=== PATIENT | female | born 1950 | race Caucasian/White ===

== ENCOUNTER 2020-12-25 06:36 | Emergency (ER) | payer OTHER, BC ==
[~2020-12-25] VITALS: Ht 160 cm; Wt 83.8 kg
--- NOTE | 2020-12-25 06:52 | NUR ---
DISCUSSED TRIAGE WITH MD BARRIOS, NO NEED TO PLACE PT ON STROKE ALERT PER MD.
--- NOTE | 2020-12-25 07:45 | NUR ---
PT REPORTS 10/10 RIGHT TEMPORAL PAIN, DIZZINESS, GENERALIZED WEAKNESS AND UNSTEADY GAIT. NO FACIAL DROOPING, ONE SIDED WEAKNESS. PUPILS ARE PERRL
[2020-12-25] MEDS ORDERED: diazepam inj 5 MG/ML inj. IV ONE (08:10)
[2020-12-25] MEDS ORDERED: METH-797 PO (08:15)
[2020-12-25 08:36] VITALS: BP 130/53
[2020-12-29] MEDS ORDERED: LEVO500T89 PO (16:48)
== END 2020-12-25 08:38 | disposition home or self-care (01) ==
LOC: ER 06:36
DX: S09.11XA Strain of muscle and tendon of head, initial encounter (principal); Z88.8 Allergy status to other drugs, medicaments and biological substances; Z79.899 Other long term (current) drug therapy; X58.XXXA Exposure to other specified factors, initial encounter; Y93.89 Activity, other specified; Y92.89 Other specified places as the place of occurrence of the external cause; Y99.8 Other external cause status
CPT/HCPCS: 70450; 96374; 99284; J3360

== ENCOUNTER 2020-12-29 14:51 | Emergency (ER) | payer OTHER, BC ==
[~2020-12-29] VITALS: Ht 160 cm; Wt 80.9 kg
[~2020-12-29 14:51] MED LIST: METH-797 PO
[2020-12-29 15:06] VITALS: BP 127/70
[2020-12-29 16:14] LABS: BASOPHILS % (AUTO) 0.2 % (0-1); EOSINOPHILS % (AUTO) 0 % (0-6); HEMATOCRIT 40.5 % (35.0-45.0); LYMPHOCYTES # (AUTO) 0.7 X10'3 (1.1-4.8); LYMPHOCYTES % (AUTO) 12.7 % (21-51); MEAN CORPUSCULAR HEMOGLOBIN 29.8 PG (27.0-31.0); MEAN CORPUSCULAR HGB CONC 34.5 g/dL (33.0-36.5); MEAN CORPUSCULAR VOLUME 86.6 FL (78-98); MEAN PLATELET VOLUME 8.3 FL (7.4-10.4); MONOCYTES # (AUTO) 0.3 X10'3 (0-0.9); MONOCYTES % (AUTO) 5.5 % (2-12); NEUTROPHILS # (AUTO) 4.2 X10'3 (1.8-7.7); NEUTROPHILS % (AUTO) 81.6 % (42-75); PLATELET COUNT 187 X10'3 (140-440); RED BLOOD COUNT 4.68 X10'6 (4.20-5.60); RED CELL DISTRIBUTION WIDTH 13.9 % (11.5-14.5); WHITE BLOOD COUNT 5.2 X10'3 (4.5-11.0)
[2020-12-29 16:29] LABS: ALANINE AMINOTRANSFERASE 26 U/L (12-78); ALBUMIN 3.2 G/DL (3.4-5.0); ALBUMIN/GLOBULIN RATIO 0.7 (1.1-1.5); ALKALINE PHOSPHATASE 63 IU/L (46-116); ANION GAP 9 (8-16); ASPARTATE AMINO TRANSFERASE 34 U/L (10-37); BILIRUBIN,TOTAL 0.5 MG/DL (0.1-1.0); BLOOD UREA NITROGEN 17 MG/DL (7-18); BUN/CREATININE RATIO 18.7 (6.6-38.0); CALCIUM 8.6 MG/DL (8.5-10.1); CHLORIDE 104 MMOL/L (99-107); CREATININE 0.91 MG/DL (0.40-0.90); GLUCOSE 108 MG/DL (70-104); LIPASE 90 U/L (73-393); POTASSIUM 3.5 MMOL/L (3.5-5.1); SODIUM 138 MMOL/L (135-145); TOTAL CARBON DIOXIDE 24.6 MMOL/L (24-32); TOTAL PROTEIN 7.8 G/DL (6.4-8.2); eGFR 61 ML/MIN
[2020-12-29 16:41] LABS: COLOR,URINE YELLOW (Yellow); UA COLLECTION TYPE VOIDED
[2020-12-29 16:43] LABS: CLARITY,URINE CLOUDY (Clear); GLUCOSE, URINE NEGATIVE (Neg); KETONES,URINE TRACE mg/dl (Neg); OCCULT BLOOD,URINE NEGATIVE (Neg); PROTEIN,URINE 30 mg/dl (Neg)
[2020-12-29 16:44] LABS: LEUKOCYTE ESTERASE ,URINE NEGATIVE (Neg); NITRITES, URINE NEGATIVE (Neg); UROBILINOGEN,URINE 0.2 E.U/dL (0.2-1.0)
[2020-12-29] MEDS ORDERED: ONDA4TAB6 PO (16:47)
[2020-12-29] MEDS ORDERED: LEVO500T90 PO (16:48)
[2020-12-29 16:55] LABS: HYALINE CASTS 0-3 /LPF (NEGATIVE); MUCUS STRANDS FEW /LPF (Neg); SQUAMOUS EPITHELIAL CELL,UR FEW /LPF (FEW)
[2020-12-29 16:56] LABS: BACTERIA,URINE 1+ /HPF (Neg); RBC,URINE 0-2 /HPF (0-2); TRANSITIONAL EPI CELLS,URINE FEW /HPF; WBC,URINE 0-4 /HPF (0-4)
== END 2020-12-29 16:58 | disposition home or self-care (01) ==
LOC: ER 14:51
DX: U07.1 COVID-19 (principal); H92.01 Otalgia, right ear; I10 Essential (primary) hypertension; Z88.8 Allergy status to other drugs, medicaments and biological substances
CPT/HCPCS: 36415; 71045; 80053; 81001; 83605; 83690; 83735; 84145; 85025; 87635; 99284; C9803